=== PATIENT | female | born 1965 | race Caucasian/White ===

== ENCOUNTER → 2019-02-18 | Day surgery (SDC) | payer OTHER ==
[~2019-02-18] MED LIST: DOXYCYCLINE HY100 M3 PO; LIPITOR20 MG; LIPITOR20 MG PO; OMEPRAZOLE10 MG; PNEU16DI2; Tylenol #3 PO
== END | disposition home or self-care (01) ==
LOC: ADM 02-16 12:45 → CIR.AMB 06:09
DX: D25.0 Submucous leiomyoma of uterus (principal); N84.0 Polyp of corpus uteri